=== PATIENT | female | born 1950 | race Two or more races ===

== ENCOUNTER 2024-09-03 22:47 | Emergency (ER) | payer MEDICARE, MEDICAID ==
[~2024-09-03] VITALS: Ht 139.7 cm; Wt 72.6 kg
[2024-09-04] MEDS ORDERED: IBUP-1955 PO (00:56)
[2024-09-04] MEDS ORDERED: ACET-3478 PO (00:56)
[2024-09-04] MEDS ORDERED: BACK1EAC12 MC (00:56)
[2024-09-04] MEDS ORDERED: LIDO700A30 TP (00:56)
[2024-09-04 01:28] VITALS: BP 146/80; O2SAT 94
== END 2024-09-04 01:29 | disposition home or self-care (01) ==
LOC: ER 22:47
DX: S32.028A Other fracture of second lumbar vertebra, initial encounter for closed fracture (principal); S09.90XA Unspecified injury of head, initial encounter; R07.9 Chest pain, unspecified; W18.30XA Fall on same level, unspecified, initial encounter; Y93.89 Activity, other specified; Y92.038 Other place in apartment as the place of occurrence of the external cause; Y99.8 Other external cause status
CPT/HCPCS: 70450; 72125; 72131; A4606; A4663